=== PATIENT | male | born 1950 | race Caucasian/White ===

== ENCOUNTER → 2019-04-02 16:55 | Outpatient (CLI) | payer MEDICARE, OTHER, SELFPAY ==
[2019-04-02 18:56] LABS: T4 Free Direct 1.09 ng/dL (0.76-1.46); Thyroid Stim Hormone (TSH) 1.87 uIU/mL (0.358-3.74)
[2019-04-05 10:34] LABS: Thyroid Peroxidase AB 10 IU/mL (0-34)
== END ==
PROVIDERS: Referring Provider Dermatology; Visit Provider Dermatology
DX: D48.5 Neoplasm of uncertain behavior of skin (principal); L63.8 Other alopecia areata
CPT/HCPCS: 36415; 84439; 84443; 86376